=== PATIENT | male | born 1995 | race Two or more races ===

== ENCOUNTER 2019-09-02 15:52 | Emergency (ER) | payer MEDICAID ==
[~2019-09-02] VITALS: Ht 172.7 cm; Wt 75.0 kg
[2019-09-02] MEDS ORDERED: HALOPERIDOL LACTATE 5MG/ML VIAL IM ONE ×2 (16:07→16:30)
[2019-09-02] MEDS ORDERED: LORAZEPAM 2MG/ML CPJ ONE (16:07)
[2019-09-02] MEDS ORDERED: LORAZEPAM 2MG/ML CPJ IM PRN (16:30)
[2019-09-03 00:15] VITALS: BP 111/64
== END 2019-09-03 00:15 | disposition home or self-care (01) ==
LOC: ER 15:52
DX: F15.129 Other stimulant abuse with intoxication, unspecified (principal); F17.200 Nicotine dependence, unspecified, uncomplicated
CPT/HCPCS: 93005; 96372; 99283; J1630; J2060

== ENCOUNTER 2020-11-10 15:59 | Emergency (ER) | payer MEDICAID ==
[~2020-11-10] VITALS: Ht 170.2 cm; Wt 64.0 kg
[2020-11-10] MEDS ORDERED: LORAZEPAM 1MG TABLET PO ONE (16:30)
[2020-11-10 18:36] VITALS: BP 162/93
== END 2020-11-10 18:37 | disposition home or self-care (01) ==
LOC: ER 15:59
DX: F15.10 Other stimulant abuse, uncomplicated (principal)
CPT/HCPCS: 93005; 99283

== ENCOUNTER 2021-07-27 21:43 | Emergency (ER) | payer MEDICAID, OTHER ==
[~2021-07-27] VITALS: Ht 170.2 cm; Wt 69.0 kg
[2021-07-27] MEDS ORDERED: TETANUS, DIPHTHERIA, PERTUSSIS VAC/PF 0.5ML (>10YR OLD) IM ONE (22:15)
[2021-07-27 22:56] LABS: CLARITY URINE CLEAR (CLEAR); COLOR URINE YELLOW (YELLOW); KETONES URINE TRACE (NEGATIVE); LEUKOCYTE ESTERASE URINE NEGATIVE (NEGATIVE); NITRITE URINE NEGATIVE (NEGATIVE); OCCULT BLOOD URINE NEGATIVE (NEGATIVE); PH URINE 5.5 (4.5-8.0); PROTEIN URINE TRACE (NEGATIVE); SPECIFIC GRAVITY URINE 1.023 (1.005-1.030)
[2021-07-27 22:58] LABS: BASOPHILS % 0.5 % (0.0-2.0); EOSINOPHILS % 0.5 % (0.0-5.0); HEMATOCRIT. 43.5 % (42.0-52.0); HEMOGLOBIN. 15.1 g/dL (14.0-18.0); LYMPHOCYTES % 15.5 % (20.0-50.0); MEAN CORPUSCULAR HEMOGLOBIN 30.6 pg (28.0-32.0); MEAN CORPUSCULAR VOLUME 88.2 fL (80.0-94.0); MEAN PLATELET VOLUME 8.5 fl (7.4-10.4); MONOCYTES % 6.8 % (2.0-8.0); NEUTROPHILS % 76.7 % (40.0-76.0); PLATELET 204 x1000/uL (130-400); RED BLOOD CELL COUNT 4.94 mill/uL (4.7-6.1); RED CELL DISTRIBUTION WIDTH 12.3 % (11.6-14.6)
[2021-07-27 23:00] LABS: CHLORIDE 106 mEq/L (98-107)
[2021-07-27 23:04] LABS: ETHANOL BLOOD 65 mg/dL
[2021-07-27 23:09] LABS: *BARBITURATES SCREEN URINE NEGATIVE (NEGATIVE); *BENZODIAZEPINES SCREEN URINE NEGATIVE (NEGATIVE); *COCAINE SCREEN URINE NEGATIVE (NEGATIVE)
[2021-07-27 23:10] LABS: *AMPHETAMINES SCREEN URINE PRESUMTIVE POSITIVE (NEGATIVE); CANNABINOID URINE SCREEN NEGATIVE (NEGATIVE); METHADONE URINE SCREEN NEGATIVE (NEGATIVE); OPIATES URINE SCREEN NEGATIVE (NEGATIVE); PHENCYCLIDINE URINE SCREEN NEGATIVE (NEGATIVE)
[2021-07-28 09:20] VITALS: BP 108/66
== END 2021-07-28 09:22 | disposition home or self-care (01) ==
LOC: ER 21:43
DX: R45.851 Suicidal ideations (principal); T43.621A Poisoning by amphetamines, accidental (unintentional), initial encounter; Y92.9 Unspecified place or not applicable; T51.91XA Toxic effect of unspecified alcohol, accidental (unintentional), initial encounter; S60.812A Abrasion of left wrist, initial encounter; X58.XXXA Exposure to other specified factors, initial encounter; Y93.9 Activity, unspecified; F20.9 Schizophrenia, unspecified; Z20.822 Contact with and (suspected) exposure to COVID-19
CPT/HCPCS: 36415; 80053; 80305; 80307; 80320; 80329; 81003; 85025; 90471; 90715; 99285; C9803; U0003; U0005; Z7610; G0480

== ENCOUNTER 2024-09-02 13:17 | Emergency (ER) | payer OTHER ==
[~2024-09-02] VITALS: Ht 167.6 cm; Wt 82.0 kg
[2024-09-02 13:25] VITALS: O2SAT 99
[2024-09-02 13:26] VITALS: BP 140/107; PULSE 100; RESP 18; TEMP 98.9; O2SAT 99
== END 2024-09-02 14:44 | disposition home or self-care (01) ==
LOC: ER 13:17
DX: H57.89 Other specified disorders of eye and adnexa (principal)
CPT/HCPCS: 99281

== ENCOUNTER 2025-06-18 22:21 | Emergency (ER) | payer MEDICAID, OTHER ==
[~2025-06-18] VITALS: Ht 175.3 cm; Wt 96.0 kg
[2025-06-18 22:25] VITALS: O2SAT 97
[2025-06-18 23:02] LABS: BASOPHILS % 0.7 % (0.0-2.0); EOSINOPHILS % 0.9 % (0.0-5.0); HEMATOCRIT. 48.7 % (42.0-52.0); HEMOGLOBIN. 16.4 g/dL (14.0-18.0); LYMPHOCYTES % 36.5 % (20.0-50.0); MEAN PLATELET VOLUME 7.5 fl (7.4-10.4); MONOCYTES % 6.1 % (2.0-8.0); NEUTROPHILS % 55.8 % (40.0-76.0); PLATELET 234 x1000/uL (130-400); RED BLOOD CELL COUNT 5.33 mill/uL (4.7-6.1); RED CELL DISTRIBUTION WIDTH 12.9 % (11.6-14.6)
[2025-06-18 23:15] LABS: CREATININE 1.0 mg/dL (0.6-1.3); UREA NITROGEN BLOOD 9 mg/dL (9-23)
[2025-06-18 23:16] LABS: ETHANOL BLOOD 298 mg/dL (<10)
[2025-06-18 23:17] LABS: ASPARTATE AMINOTRANSFERASE 28 IU/L (<34); BILIRUBIN DIRECT 0.2 mg/dL (<=3.0); BILIRUBIN TOTAL 0.7 mg/dL (0.1-1.0); PROTEIN TOTAL 7.3 g/dL (6.0-8.3)
[2025-06-18] MEDS: DIPHENHYDRAMINE 50MG/ML VIAL IM ONE (23:32)
[2025-06-18] MEDS: HALOPERIDOL LACTATE 5MG/ML VIAL IM ONE (23:32)
[2025-06-18] MEDS: LORAZEPAM 2MG/ML UD SYRINGE IM NR (23:40)
[2025-06-19 04:00] VITALS: BP 108/66; PULSE 70; RESP 16; TEMP 37; O2SAT 98
[2025-06-19] MEDS: OLANZAPINE 5MG TABLET ODT PO SCH (10:33)
[2025-06-19 14:09] LABS: *AMPHETAMINES SCREEN URINE PRESUMPTIVE POSITIVE (NEGATIVE); *BARBITURATES SCREEN URINE NEGATIVE (NEGATIVE); *BENZODIAZEPINES SCREEN URINE NEGATIVE (NEGATIVE); *COCAINE SCREEN URINE NEGATIVE (NEGATIVE); CANNABINOID URINE SCREEN NEGATIVE (NEGATIVE); ECSTASY MDMA SCREEN URINE CONF.TEST INDICATED (NEGATIVE); METHADONE URINE SCREEN NEGATIVE (NEGATIVE); OPIATES URINE SCREEN NEGATIVE (NEGATIVE); PHENCYCLIDINE URINE SCREEN NEGATIVE (NEGATIVE)
== END 2025-06-19 19:10 | disposition short-term general hospital (02) ==
LOC: ER 22:21
DX: R41.82 Altered mental status, unspecified (principal); F20.9 Schizophrenia, unspecified; F31.9 Bipolar disorder, unspecified; R07.9 Chest pain, unspecified; Z79.899 Other long term (current) drug therapy; Z20.822 Contact with and (suspected) exposure to COVID-19
CPT/HCPCS: 80076; 80305; 80048; 80307; 80329; 80320; 85025; 36415; 71045; 70450; 93005; 96372; 99285; 87426; J1200; J1630; J2060; A4606; G0480